=== PATIENT | female | born 1995 | race Caucasian/White ===

== ENCOUNTER 2016-11-18 10:28 | Emergency (ER) | payer MEDICAID ==
[2016-11-18] MEDS ORDERED: Ibuprofen 400 MG TAB ONE (11:32)
[2016-11-18] MEDS ORDERED: DUONEB INH ONE (13:28)
== END 2016-11-18 14:01 | disposition home or self-care (01) ==
LOC: ER 10:28
DX: R50.9 Fever, unspecified (principal); J06.9 Acute upper respiratory infection, unspecified; F17.210 Nicotine dependence, cigarettes, uncomplicated
CPT/HCPCS: 71020; 87804; 87880; 94640